=== PATIENT | male | born 1990 | race African-American/Black ===

== ENCOUNTER 2024-12-26 15:22 | Emergency (ER) | payer MEDICAID ==
[~2024-12-26] VITALS: Ht 190.5 cm; Wt 93.0 kg
[2024-12-26 15:38] VITALS: BP 128/64; TEMP 98.1; O2SAT 98
[2024-12-26] MEDS ORDERED: PRED50TA PO (15:55)
== END 2024-12-26 16:14 | disposition home or self-care (01) ==
LOC: ER 15:27
DX: J04.0 Acute laryngitis (principal); F17.200 Nicotine dependence, unspecified, uncomplicated; Z79.52 Long term (current) use of systemic steroids; Z88.5 Allergy status to narcotic agent